=== PATIENT | male | born 1980 | race Caucasian/White ===

== ENCOUNTER 2023-02-18 14:18 | Emergency (ER) | payer MEDICAID ==
[~2023-02-18] VITALS: Ht 182.9 cm; Wt 97.5 kg
--- NOTE | 2023-02-18 14:18 | NUR ---
Marai Isabel wallace in [facility] - 02/18/23 at 1442 by TAL Patient examined by physician, Family at bedside.
[2023-02-18] MEDS ORDERED: TDAP DIPH,PERTUSS,TET VAC/PF 0.5 ML DISP.SYRIN IM ONE ×2 (14:30→14:33)
[2023-02-18] MEDS ORDERED: LIDOCAINE HCL 1% 20 ML VIAL TP ONE (14:30)
[2023-02-18] MEDS ORDERED: ACETAMINOPHEN ES 500 MG TABLET PO ONE (14:30)
[2023-02-18] MEDS ORDERED: NEOMY/BACITRA/POLYMYXIN B OINT UD PACKET TP ONE ×2 (14:30→14:33)
--- NOTE | 2023-02-18 14:30 | NUR ---
Maria Isabel wallace in ED - 02/18/23 at 1442 by TAL Pt. taken down for head CT.
[2023-02-18] MEDS ORDERED: LIDOCAINE HCL 1% 20 ML VIAL ONE (14:33)
[2023-02-18] MEDS ORDERED: ACETAMINOPHEN ES 500 MG TABLET ONE (14:33)
--- NOTE | 2023-02-18 14:33 | NUR ---
Patient ambulated into ER from home s/p laceration to right arm. Patient states mirror broke, fell and hit his arm, no s/s of any distress noted. However, states that he fell yesterday and c/o left rib pain. MD was at bedside for exam, patient has been informed of plan of care, old drsg removed.
--- NOTE | 2023-02-18 14:40 | NUR ---
Pt declined tylenol. Unable to return med as packet was already open.
[2023-02-18] MEDS ORDERED: HYDR-3980 PO (15:25)
--- NOTE | 2023-02-18 15:38 | NUR ---
Patient discharged to home in stable condition. Written and verbal after care instructions given. Patient verbalizes understanding of instructions. Stressed follow up or return to ER for worsening s/s.
[2023-02-18 15:43] VITALS: BP 120/89
== END 2023-02-18 15:44 | disposition home or self-care (01) ==
LOC: ER 14:22
DX: S51.811A Laceration without foreign body of right forearm, initial encounter (principal); S20.212A Contusion of left front wall of thorax, initial encounter; Z79.899 Other long term (current) drug therapy; W01.0XXA Fall on same level from slipping, tripping and stumbling without subsequent striking against object, initial encounter; Y93.89 Activity, other specified; Y92.89 Other specified places as the place of occurrence of the external cause; Y99.8 Other external cause status
CPT/HCPCS: 99284; 71101; 73090; 90715; 90471; 12002; J3490; A4663; A9150